=== PATIENT | female | born 2005 | race Two or more races ===

== ENCOUNTER 2025-05-01 21:22 | Emergency (ER) | payer SELFPAY ==
--- NOTE | ~2025-05-01 | XR_ITS ---
CLINICAL HISTORY: cough 1 view chest x-ray. Comparison: None provided. Findings: No consolidation, pneumothorax, or effusion. Heart size normal. Impression: 1. No acute cardiopulmonary process. No focal pulmonary consolidation. This document has been electronically signed by: Jah Borjas MD on 05/02/2025 00:19:42
[2025-05-01 21:43] VITALS: BP 123/66; PULSE 90; RESP 18; TEMP 37.1; O2SAT 98; BMI 17.6
[2025-05-01 22:04] LABS: MANUAL DIFF FLAG NO
[2025-05-01 22:11] LABS: Hematocrit 35.6 % (37.0-47.0); Hemoglobin 12.1 g/dl (12.0-16.0); Imm Gran Abs Auto 0.02 X10*3/uL (0.00-0.03); Imm Gran Pct Auto 0.3 % (0.0-0.4); Lymphocytes Absolute Auto 1.0 X10*3/uL (1.2-4.9); Mean Corpuscular HGB Conc 34.0 g/dl (31.0-35.0); Mean Corpuscular Hemoglobin 29.2 pg (27.0-33.0); Mean Corpuscular Volume 85.8 fL (80.0-98.0); NRBC Abs Auto 0.000 X10*3/uL (0.0-0.012); NRBC Pct Auto 0.0 /100WBC (0.0-0.2); Platelet Count 225 X10*3/uL (160-400); Red Blood Count 4.15 X10*6/uL (4.20-5.50); White Blood Count 7.9 X10*3/uL (4.8-10.8)
[2025-05-01 22:13] LABS: IDNOW Serial# 55D5AD1C; Strep A Nucleic Acid Negative (Negative)
[2025-05-01 22:22] LABS: Alanine Aminotransferase 19 U/L (0-31); Albumin Level 4.7 g/dL (3.5-5.0); Alkaline Phosphatase 64 U/L (39-117); Anion Gap 12 (12-20); Aspartate Amino Transferase 25 U/L (5-31); Blood Urea Nitrogen 8 mg/dL (9-16); Calcium 9.2 mg/dL (8.4-10.2); Carbon Dioxide 25 mmol/L (22-29); Chloride 105 mmol/L (96-108); Creatinine Clr Calc Pharmacy 95.7; Estimated Glomerular Filt Rate > 60; Potassium 3.6 mmol/L (3.3-5.1); Sodium 138 mmol/L (135-145); Total Protein 7.6 g/dL (6.5-8.0)
[2025-05-01 22:43] LABS: Resp Syncy Virus RNA Qual PCR NEGATIVE (Negative); SARS COV2 PCR INHOUSE NEGATIVE (Negative)
[2025-05-01 23:49] VITALS: BP 105/68; PULSE 87; RESP 18; TEMP 37.3; O2SAT 99
--- NOTE | 2025-05-02 00:28 | ED.GENADULT ---
HPI - General Adult General Chief complaint: Upper Respiratory Symptoms Stated complaint: Fever of 114 Time Seen by Provider: 05/01/25 23:05 Source: patient Limitations: no limitations History of Present Illness ED Provider: Brittney Knight PA-C HPI narrative: 19-year-old female presents with viral syndrome x1 day. Associated T-max of 102?, generalized myalgias, chills, sore throat nasal congestion. She has a positive sick contact who has croup. Related Data Allergies Allergy/AdvReac Type Severity Reaction Status Date / Time No Known Allergies Allergy Verified 05/01/25 21:44 Review of Systems Review of Systems: Yes all other systems are reviewed and are negative Constitutional: Constitutional: Reports chills, Reports fatigue, Reports fever(s) and Reports malaise ENT: Reports nasal congestion, Reports nasal discharge and Reports sore throat Cardiovascular: Cardiovascular: Denies chest pain and Denies dyspnea Respiratory: Respiratory: Denies cough and Denies dyspnea Gastrointestinal: Gastrointestinal: Denies nausea and Denies vomiting Musculoskeletal: Musculoskeletal: Reports myalgias Endocrine: Endocrine: Reports fatigue PMFSH Past Medical History Attestation statement: The following information was validated with the patient. Social History Social History Advance Directives: No Advance Directives Information Provided: Yes Physical Exam ED Vital Signs: Vital Signs - 24 hr 05/01/25 21:43 05/01/25 23:49 Temperature 98.8 F 99.1 F Pulse Rate 90 87 Respiratory Rate 18 18 Blood Pressure 123/66 105/68 Pulse Oximetry 98 99 Oxygen Delivery Method Room Air Room Air BMI result Body Mass Index 17.6 Const Other: Alert well-appearing Orientation/consciousness: patient oriented x3 HENAK Other: Opiate erythematous without exudate, uvula midline, no trismus no drooling no sublingual fluctuance Resp Effort & Inspection: normal respiratory effort Cardio Other: Normal peripheral perfusion Skin Other: Warm dry no rash Neuro General: patient oriented x3, gait normal, no focal motor deficits and CN's II-XI intact bilaterally Psych Other: Cooperative Medical Decision Making Medical Decision Making [facility] Narrative: 19-year-old female presents with viral syndrome x1 day. Associated T-max of 102?, generalized myalgias, chills, sore throat nasal congestion. She has a positive sick contact who has croup. No chronic issues History: Per patient I have considered the following differential diagnoses: Viral syndrome, bronchitis, pneumonia, strep pharyngitis, RPA, [employer] Plan: Viral panel and strep screen ordered from triage, I added on a chest x-ray, additional screening labs were obtained and were within normal limits. The patient has been exposed to croup, she she likely also has the same viral illness. We will send with home care instructions. She has no exam findings consistent with RPA or [employer]. I have independently reviewed the following tests: Labs: No leukocytosis, not anemic, no electrolyte abnormality noted, viral panel negative, strep screen negative Chest x-ray:Comparison: None provided. Findings: No consolidation, pneumothorax, or effusion. Heart size normal. Impression: 1. No acute cardiopulmonary process. No focal pulmonary consolidation. Lab Data 05/01/25 22:00 05/01/25 21:59 Labs: Lab Results 05/01/25 05/01/25 Range/Units 21:59 22:00 WBC 7.9 (4.8-10.8) X10*3/uL RBC 4.15 L (4.20-5.50) X10*6/uL Hgb 12.1 (12.0-16.0) g/dl Hct 35.6 L (37.0-47.0) % MCV 85.8 (80.0-98.0) fL MCH 29.2 (27.0-33.0) pg MCHC 34.0 (31.0-35.0) g/dl RDW 14.5 (11.0-16.0) % Plt Count 225 (160-400) X10*3/uL MPV 11.7 (9.4-12.3) fL Immature Gran % (Auto) 0.3 (0.0-0.4) % Neut % (Auto) 73.3 H (45-73) % Lymph % (Auto) 12.9 L (20-40) % [place] % (Auto) 9.9 (2-11) % Eos % (Auto) 2.7 (0-4) % Baso % (Auto) 0.9 (0-2) % Lymph # (Auto) 1.0 L (1.2-4.9) X10*3/uL [place] # (Auto) 0.8 (0.1-1.2) X10*3/uL Eos # (Auto) 0.2 (0.0-0.4) X10*3/uL Baso # (Auto) 0.1 (0.0-0.2) X10*3/uL Abs Immat Gran (auto) 0.02 (0.00-0.03) X10*3/uL Absolute Neuts (auto) 5.8 (2.0-8.3) x10*3/uL Absolute Nucleated RBC 0.000 (0.0-0.012) X10*3/uL Nucleated RBC % (auto) 0.0 (0.0-0.2) /100WBC Sodium 138 (135-145) mmol/L Potassium 3.6 (3.3-5.1) mmol/L Chloride 105 (96-108) mmol/L Carbon Dioxide 25 (22-29) mmol/L Anion Gap 12 (12-20) BUN 8 L (9-16) mg/dL Creatinine 0.66 (0.5-1.4) mg/dL Estim Creat Clear Calc 95.7 Estimated GFR > 60 Random Glucose 114 (60-115) mg/dL Calcium 9.2 (8.4-10.2) mg/dL Total Bilirubin 0.7 (0.0-1.0) mg/dL AST 25 (5-31) U/L ALT 19 (0-31) U/L Alkaline Phosphatase 64 (39-117) U/L Total Protein 7.6 (6.5-8.0) g/dL Albumin 4.7 (3.5-5.0) g/dL Influenza Type A (PCR) NEGATIVE (Negative) Influenza Type B (PCR) NEGATIVE (Negative) RSV RNA Qual (PCR) NEGATIVE (Negative) SARS-CoV-2 RNA (RT-PCR) NEGATIVE (Negative) S. pyogenes GrpA LEE Negative (Negative) Discharge Plan Discharge Clinical Impression: Acute viral syndrome, Fever Patient Disposition: Home, Self-Care Instructions: Viral Syndrome (ED), Fever in Adults (ED) Additional Instructions: All of your screening labs were normal, you were screened for influenza RSV and COVID, and strep throat, everything was negative. The chest x-ray was negative as well. Given you were exposed to croup, you clearly have the same viral illness as your niece. Viral illnesses self-limiting. Rest, increase your fluid intake, manage your fevers with [id number] ibuprofen and Tylenol. Ibuprofen 600 mg taken every 6 hours with food, alternated with [id number] Tylenol 1000 mg taken every 8 hours. Follow up with your primary care as needed. Stand Alone Forms: Work/School Release Print Language: [place]
[2025-05-02 01:17] VITALS: O2SAT 97
[2025-05-02 01:19] VITALS: BP 123/59; PULSE 79; RESP 16; TEMP 37.3; O2SAT 97
== END 2025-05-02 01:20 | disposition home or self-care (01) ==
PROVIDERS: Emergency Provider Emergency Medicine
DX: B34.9 Viral infection, unspecified (principal); R05.9 Cough, unspecified; R50.9 Fever, unspecified
CPT/HCPCS: 71045; 80053; 85025; 87637; 87651; 99283; 99284

== ENCOUNTER → 2025-05-01 23:08 | Outpatient (BNV) | payer SELFPAY | PROVIDERS: Emergency Provider Emergency Medicine; Visit Provider Radiology Diagnostic Radiology | DX: R05.9 Cough, unspecified (principal) | CPT/HCPCS: 71045 ==